=== PATIENT | male | born 1980 | race Caucasian/White ===

== ENCOUNTER 2018-10-14 22:33 | Inpatient (IN) | payer MEDICAID, OTHER, SELFPAY ==
[~2018-10-14] VITALS: Ht 185.4 cm; Wt 84.1 kg
[~2018-10-14 22:33] MED LIST: CLAR10CA3 PO; INVE234I IM; RISP2TAB32 PO; TRAZ-252 PO; no home medications
[2018-10-14 23:21] LABS: HEMATOCRIT 46.1 % (42.0-52.0); HEMOGLOBIN 15.5 g/dl (13.5-17.5); MEAN CORPUSCULAR HEMOGLOBIN 32.5 pg (27.0-33.0); MEAN CORPUSCULAR HGB CONC 33.6 g/dl (32.0-36.5); MEAN CORPUSCULAR VOLUME 96.6 fl (80.0-96.0); PLATELET COUNT, AUTOMATED 356 10^3/uL (150-450); RED BLOOD COUNT 4.77 10^6/uL (4.30-6.10); WHITE BLOOD COUNT 7.3 10^3/uL (4.0-10.0)
[2018-10-14 23:50] LABS: AMPHETAMINES LEVEL URINE NEGATIVE (NEGATIVE); BARBITURATES URINE NEGATIVE (NEGATIVE); BENZODIAZEPINES URINE NEGATIVE (NEGATIVE); CANNABINOIDS URINE POSITIVE (NEGATIVE); COCAINE METABOLITE URINE NEGATIVE (NEGATIVE); METHADONE URINE NEGATIVE (NEGATIVE); OPIATES URINE NEGATIVE (NEGATIVE); PHENCYCLIDINE URINE NEGATIVE (NEGATIVE)
[2018-10-14 23:59] LABS: ACETAMINOPHEN LEVEL < 2.0 UG/ML (10.0-30.0); ALBUMIN 4.1 GM/DL (3.2-5.2); ALT/SGPT 35 U/L (12-78); BILIRUBIN,DIRECT < 0.1 MG/DL (0.0-0.2); BILIRUBIN,TOTAL 0.2 MG/DL (0.2-1.0); BLOOD UREA NITROGEN 6 MG/DL (7-18); CALCIUM LEVEL 8.2 MG/DL (8.5-10.1); CARBON DIOXIDE LEVEL 23 MEQ/L (21-32); CHLORIDE LEVEL 107 MEQ/L (98-107); CREATININE FOR GFR 0.96 MG/DL (0.70-1.30); ETHYL ALCOHOL (ETHANOL) 0.292 % (0.000-0.010); GLOMERULAR FILTRATION RATE > 60.0 (>60); GLUCOSE, FASTING 112 MG/DL (70-100); POTASSIUM SERUM 4.3 MEQ/L (3.5-5.1); SALICYLATE LEVEL 4.9 MG/DL (5.0-30.0); SODIUM LEVEL 139 MEQ/L (136-145); THYROID STIMULATING HORMONE 0.493 uIU/ML (0.358-3.740); TOTAL PROTEIN 7.9 GM/DL (6.4-8.2)
[2018-10-15] MEDS ORDERED: METAL LOCK LOOP XX ONE (02:54)
[2018-10-15] MEDS ORDERED: MOM 30ML SUSPENSION UDC PO PRN (10:15)
[2018-10-15] MEDS ORDERED: MAALOX 30 ML SUSP *UDC PO PRN (10:15)
[2018-10-15] MEDS ORDERED: ACETAMINOPHEN TAB 650MG DOSE (2X325MG) PO PRN (10:15)
[2018-10-15 11:31] VITALS: BP 141/87
[2018-10-15] MEDS: NICOTINE 21MG/24HR 1 EA TRANSDERMAL TD SCH (13:55)
[2018-10-15] MEDS: MULTIVITAMINS/MINERALS THERAP 1 TAB PO SCH (13:56)
[2018-10-15] MEDS: THIAMINE 100 MG TAB PO SCH (13:56)
[2018-10-15] MEDS: FOLIC ACID 1 MG TAB PO SCH (13:56)
[2018-10-15] MEDS: POLYSPORIN TOPICAL OINTMENT 15GM TOP SCH ×3 (15:44→21:27)
--- NOTE | 2018-10-15 16:17 | HPEPDOC ---
General Date of Admission October 15, 2018 at 10:05 Date of Service: October 15, 2018 Chief Complaint The patient is a 38-year-old male admitted who presented to the emergency room after hes brought in by police because his parents thought he was going to harm himself History of Present Illness Patient is a 38-year-old female with no significant past medical history who presented to the emergency room brought in by police because parents have reported that he may harm himself. Patient reports that he has no suicidal intention and he feels okay, has no thoughts of depression. This is currently being managed by the psychiatrist. Hospitalist service was consultation for further medical management. On review of systems patient denies any headache, chest pain, shortness of breath, palpi tations, nausea, vomiting, abdominal pain, constipation, diarrhea, urinary discomfort or fevers / chills in the last few days. Patient does report a chronic cough that he attributes to smoking. Patient does report left wrist pain that he attributes to handcuffs, and left shoulder abrasion that he notes occurred during his arrest / transfer to [facility]. Patient does not report any significant pain but does report that he would like to have ice applied. Home Medications No Active Prescriptions or Reported Meds Allergies Coded Allergies: No Known Allergies (Unverified , 02/21/14) Past Medical History Medical History No significant past medical history Surgical History Appendectomy at the age of 12 Family History - Mother and father with no reported medical history - No history of malignancies Social History - Patient reports that he is a smoker of cigarettes for 25 years at less than 1 per day - He reports that he drinks alcohol; reported at couple of beers a day - Patient does report occasional. Drug use of marijuana - Denies recent travel or sick contacts - Lives alone - Occupation; construction work Review of Systems Other systems 10 point review of systems complete, all negative otherwise stated in HPI Vital Signs - Vitals: BP 147/87, HR 73, RR 18, Sat 96%RA, Temp 98.4F - General: Lying in bed, No acute distress, Speaking in full sentences, AAOx3 - HEENT: NC, AT, PERRLA, EOMI - CVS: RRR, +S1S2, - Murmurs / rubs / gallops - Lungs: Fair air entry bilaterally, Clear to auscultation, No wheezing / rales / rhonchi - Abdomen: Soft, Non-distended, Non-tender - Extremities: No lower extremity edema, No calf tenderness, mild left wrist swelling, no significant tenderness, has full range of motion of left wrist - Neuro: No focal motor or sensory deficit - Skin: Area of abrasion over left shoulder Laboratory Data Labs 24H Laboratory Tests 2 10/14/18 23:09: Nucleated Red Blood Cells % (auto) 0.0, Anion Gap 9, Glomerular Filtration Rate > 60.0, Calcium Level 8.2L, Aspartate Amino Transf (AST/SGOT) 26, Alanine Aminotransferase (ALT/SGPT) 35, Alkaline Phosphatase 101, Total Bilirubin 0.2, Direct Bilirubin < 0.1, Total Protein 7.9, Albumin 4.1, Albumin/Globulin Ratio 1.08, Thyroid Stimulating Hormone (TSH) 0.493, Salicylates Level 4.9L, Urine Amphetamines Screen NEGATIVE, Urine Benzodiazepines Screen NEGATIVE, Urine Opiates Screen NEGATIVE, Urine Methadone Screen NEGATIVE, Acetaminophen Level < 2.0L, Urine Barbiturates Screen NEGATIVE, Urine Phencyclidine Screen NEGATIVE, Urine Cocaine Metabolite Screen NEGATIVE, Urine Cannabinoids Screen POSITIVEH, Ethyl Alcohol Level 0.292H CBC/BMP Laboratory Tests 10/14/18 23:09 Red Blood Count 4.77, Mean Corpuscular Volume 96.6 H, Mean Corpuscular Hemoglobin 32.5, Mean Corpuscular Hemoglobin Concent 33.6, Red Cell Distribution Width 12.6 Plan / VTE VTE Prophylaxis Ordered?: Yes Plan Plan Possible thoughts of harming self / Suspicion of depressed mood - Patient reports that he has no suicidal intention; and feels okay - Currently is being managed by psychiatry Left wrist pain - Will get x-ray of wrist to evaluate - Continue with ice pack when necessary pain Left shoulder abrasion - No signs of infection - Area was cleaned with alcohol swabs - Will apply Polysporin ointment twice daily DVT prophylaxis - c/w early ambulation Baker Helper was present during the duration of this history and physical Please re-consult as needed ZAYRA GUADARRAMA MD October 15, 2018 16:17
[2018-10-15 18:16] VITALS: BP 119/57
[2018-10-15 19:50] VITALS: BP 132/83
[2018-10-15] MEDS ORDERED: LORazepam 2 MG TAB PO PRN (21:45)
[2018-10-15] MEDS: hydrOXYzine 25 MG TAB PO SCH (22:56)
[2018-10-16 07:06] VITALS: BP 127/65
--- NOTE | 2018-10-16 08:33 | MHHPEPDOC ---
General Date Of Admission: October 16, 2018 Legal Status: 9.39 Chief Complaint No complaints. My family misunderstood History of Present Illness HISTORY OF THE PRESENT ILLNESS: Patient is a 38 -year-old , male, who . Note * Patient arrived last night by police, after family called for help. He had reportedly been posting suicidal material on social media, as well as phoning his mother & expressing SI. Patient was intoxicated at the time, however is now sober. Patient admits that he has been posting things that have been rather bizarre, in response to some incident in [place]. His explanation of this was difficult t o follow & he eventually changed topics. He says that he had posted "some things", although denies that they were suicidal in content. He also denies threats made via phone to his mother. During interview patient was vague & evasive. Some of the info which he provided was quite inconsistent with what is known to be true, suggesting that he was unreliable. Patient's sister (Carline Jackson ([phone]) was contacted for corroboration, and reported the following: Patient has a long h/o untreated addiction (cannabis) & mental health issues. He recently has been decompensating to the point where he began threatening suicide yesterday. He began posting his SI on social media & then later phoned his mother with more of the same. Mother placed call on speakerphone, where sister heard his repeated statements about his desire to & suicidal ideas. After hearing the telephone call on speakerphone, sister told him that she was on her way to help him. Upon her arrival, patient's home was found to be without lights on. The doors were also locked. Sister (who is a [employer] [place], but was off duty) then contacted local police for assistance, fearing that he had indeed killed himself. Patient eventually opened the door, although he resisted being taken into custody. Sister checked to see if there was any evidence of other drugs (aside from cannabis), however only cannabis & many empty beer bottles were observed. She noted that this was a surprise, as she had known patient to be "a drinker". She expressed hope that [facility], citing his suicidal threats & family fearing for his safety.. Patient lives in [place], and has a girlfriend. Easily 1 and has 2 children, 18 and 17. They live in [place] with his ex-. He has been employed in construction, vane, lawn work and fixing automobiles. He denies any legal history. He states he was educated at [employer] for a couple of years. His family history is negative. His medical history is negative. His neurological history is neg ative. He is on no medications. He states he has had an appendectomy.. He denies alcohol use and states he uses pot maybe once a week. Addiction to what was reported by his sister who is a real estate administrative assistant. Please read above his. He states his mother and father were worried about him, but they misunderstood his Facebook posts which were about nuclear warheads and that that occurred in [place] that was recently on the news. He denies. He denies hallucinations and delusions Psychiatric Review of Systems Depression (2 or more weeks): difficulty concentrating, suicidal thoughts Psychosis: denies PTSD: denies Anxiety: denies Past Psychiatric History Previous Psychiatric Diagnosis: Negative. Previous Psychiatric Admissions:. Negative. Suicide Attempts: Family states he has been making statements. Psychiatric Follow-up:. Negative Psychiatric medications: Negative. Past Medical History Head Injury: No Seizures: No Hospitalizations: No Surgeries: No Family Medical/Psychiatric HX Psychiatric Disorders: No Addiction: No Suicide Attemps/Completions: No Addiction History alcohol Social History Childhood: . Abuse/Trauma:. Current Living Situation: At home with girlfriend. Education: Some years at [employer]. Employment: Numerous jobs. Social Support: Girlfriend and family. Legal:. Negative. Marital: . Mental Status Examination General Appearance: unkempt Build: average Demeanor: withdrawn, guarded Eye Contact: poor Activity: average Behavior: cooperative Speech: clear Affect: constricted Thought Process: circumstantial, slow Thought Content (Delusions): none reported Thought Content (Other): guarded, unable to elaborate Thought Content (Aggressive): none reported Perception (Hallucinations): none reported Perception (Other): none reported Cognition (Impairment of): ability to abstract Cognition(Intelligence Est.): average Oriented: Oriented times three Insight: poor Judgment: Poor Psychosis: Abstract Thinking Diagnoses Rule out depression with psychotic features and polysubstance abuse A-FIB/CHADSVASC A-FIB History Current/History of A-Fib/PAF?: No Initial Treatment Plan 1. Patient was admitted on a [9.39] status. 2. Complete history was obtained. 3. With patients permission, family will be contacted and database will be expanded. 4. Patients medication regimen will be reviewed and changed accordingly. 5. Patient will be provided with protected environment. 6. Patient will be treated with individual, group, and milieu therapies. 7. Patient will receive supportive psych-education. 8. Discharge planning will commence immediately. 9. Outpatient follow-up treatment will be strongly recommended. 10. The initial treatment plan will focus initially on: * Depression. * Risk for suicide. * Substance abuse. ESTIMATED LENGTH OF STAY: - DAYS. TIME SPENT COUNSELING AND COORDINATING INITIAL CARE: minutes. Vital Signs Vital Signs Date Time Temp Pulse Resp B/P (MAP) Pulse Ox O2 Delivery O2 Flow Rate FiO2 10/16/18 07:06 98.0 55 14 127/65 (85) 10/15/18 11:31 95 10/15/18 10:44 Room Air Medications No Active Prescriptions or Reported Meds Allergies Coded Allergies: No Known Allergies (Unverified , 02/21/14) MEY BAPTISTE MD October 16, 2018 08:33
[2018-10-16] MEDS: MULTIVITAMINS/MINERALS THERAP 1 TAB PO SCH (10:02)
[2018-10-16] MEDS: THIAMINE 100 MG TAB PO SCH (10:02)
[2018-10-16] MEDS: FOLIC ACID 1 MG TAB PO SCH (10:02)
[2018-10-16] MEDS: hydrOXYzine 25 MG TAB PO SCH ×3 (10:02→20:52)
[2018-10-16] MEDS: NICOTINE 21MG/24HR 1 EA TRANSDERMAL TD SCH (10:02)
[2018-10-16] MEDS: POLYSPORIN TOPICAL OINTMENT 15GM TOP SCH ×2 (10:03→20:53)
[2018-10-16 18:15] VITALS: BP 126/69
[2018-10-17 06:50] VITALS: BP 111/61
--- NOTE | 2018-10-17 06:55 | IPN ---
DATE OF SERVICE: 10/16/2018 38-year-old male on the inpatient mental health unit. He had been complaining of left wrist pain that he had attributed to hand cuffs and a left shoulder abrasion. He has had ice applied to it. He refused and declined any x-ray . HOME MEDICATIONS: None. ALLERGIES: No known allergies. PAST MEDICAL HISTORY: Negative. FAMILY HISTORY: See history and physical. SOCIAL HISTORY: See history and physical. VITAL SIGNS: Blood pressure 127/65, pulse 56, respirations 16, temperature 98. The patient is alert and oriented times three. Pupils are equal and reactive to light. EOMs are intact. Pharynx is pink and moist. Tongue is midline. Neck is supple without lymphadenopathy. Chest is clear to auscultation. Heart regular. Abdomen benign. Bowel sounds are positive. and rectal not done. Extremities no cyanosis, clubbing, or edema. Left wrist shows no swelling and full range of motion. Radial pulse palpable. Hand grasps are equal. Left shoulder abrasion, no open areas or signs of infection. IMPRESSION: Left wrist improved with ice. The patient again declined x-ray and has full range of motion. Left shoulder abrasion. No signs of infection. Continue Polysporin ointment twice a day.
[2018-10-17] MEDS: THIAMINE 100 MG TAB PO SCH (09:10)
[2018-10-17] MEDS: hydrOXYzine 25 MG TAB PO SCH ×3 (09:10→21:43)
[2018-10-17] MEDS: MULTIVITAMINS/MINERALS THERAP 1 TAB PO SCH (09:10)
[2018-10-17] MEDS: POLYSPORIN TOPICAL OINTMENT 15GM TOP SCH ×2 (09:10→21:44)
[2018-10-17] MEDS: NICOTINE 21MG/24HR 1 EA TRANSDERMAL TD SCH (09:10)
[2018-10-17] MEDS: FOLIC ACID 1 MG TAB PO SCH (09:10)
--- NOTE | 2018-10-17 10:18 | MHIPNPDOC ---
[facility] Progress Note Progress Note DATE OF SERVICE: 10/17/18 HISTORY: 38-year-old male posting "bizarre posts" found by sister living in the dark and with beer cans. Patient continues to deny symptoms. VITAL SIGNS: See below. NEW TEST RESULTS: None. CURRENT MEDICATIONS: See below. MENTAL STATUS EXAMINATION: Patient is a 38-year old male, who is. Presenting history, which contradicts observations by family. Speech: Is slow. Language skills are intact. Thought processes including: Denial of symptoms. Thought content: Intact. Abstract reasoning, and computation:. Minimal. Description of associations:. No loose association. Description of abnormal or psychotic thoughts: No apparent psychotic thought by patient's description. Judgment:, Poor. Insight: None. Orientation: Intact 3. Recent and remote memory:. Apparently no disturbance. Attention span and concentration: Intact. Language:. No disturbance. Fund of knowledge:. The. Mood: Good. Affect: Neutral. DIAGNOSES: 1., Rule out depression. . ASSESSMENT: Further information needed from family since patient is doing denial of all of the reported symptoms MANAGEMENT PLAN:, Family contact and discharge planning necessary. TIME SPENT: 30 minutes. Vital Signs Vital Signs Date Time Temp Pulse Resp B/P (MAP) Pulse Ox O2 Delivery O2 Flow Rate FiO2 10/17/18 06:50 97.7 52 12 111/61 (78) 10/15/18 11:31 95 10/15/18 10:44 Room Air Current Medications Current Medications Acetaminophen (Tylenol Tab) 650 mg Q6HP PRN PO HEADACHE or DISCOMFORT; Start 10/15/18 at 10:15 Al Hydrox/Mg Hydrox/Simethicone (Mylanta) 30 ml Q4HP PRN PO HEARTBURN/INDIGESTION; Start 10/15/18 at 10:15 Bacitracin/ Polymyxin B Sulfate (Polysporin Top Oint) BID TOP Last administered on 10/17/18at 09:10; Start 10/15/18 at 09:00 Folic Acid (Folic Acid) 1 mg DAILY PO Last administered on 10/17/18at 09:10; Start 10/15/18 at 09:00 Home Med (Med Rec Complete!) ASDIRECTED XX ; Start 10/15/18 at 09:45; Stop 10/15/18 at 09:45; Status DC Hydroxyzine HCl (Atarax) 25 mg TID PO Last administered on 10/17/18 09:10; Start 10/15/18 at 21:00 Lorazepam (Ativan) 2 mg ASDIRECTED PRN PO SEE PROTOCOL; Start 10/15/18 at 21:45 Magnesium Hydroxide (Milk Of Magnesia) 30 ml DAILYPRN PRN PO CONSTIPATION; Start 10/15/18 at 10:15 Multivitamins (Theragram-M) 1 tab DAILY PO Last administered on 10/17/18at 09:10; Start 10/15/18 at 09:00 Nicotine (Nicoderm Cq 21mg) 1 patch DAILY TD Last administered on 10/17/18 09:10; Start 10/15/18 at 09:00 Thiamine HCl (Thiamine HCl) 100 mg DAILY PO Last administered on 10/17/18 09:10; Start 10/15/18 at 09:00 Trazodone HCl (Desyrel) 50 mg QHSP PRN PO INSOMNIA; Start 10/15/18 at 10:15 Allergies Coded Allergies: No Known Allergies (Unverified , 02/21/14) MEY BAPTISTE MD October 17, 2018 10:18
[2018-10-17 19:25] VITALS: BP 128/77
[2018-10-17] MEDS: traZODone 50 MG TAB PO PRN (21:43)
[2018-10-18 07:16] VITALS: BP 113/56
[2018-10-18] MEDS: SERTRALINE HCL 50 MG TAB PO SCH (09:00)
[2018-10-18] MEDS: PALIPERIDONE 3 MG ER TAB (INVEGA) PO SCH (09:00)
[2018-10-18] MEDS: POLYSPORIN TOPICAL OINTMENT 15GM TOP SCH ×2 (09:26→21:39)
[2018-10-18] MEDS: NICOTINE 21MG/24HR 1 EA TRANSDERMAL TD SCH (09:27)
[2018-10-18] MEDS: MULTIVITAMINS/MINERALS THERAP 1 TAB PO SCH (09:27)
[2018-10-18] MEDS: FOLIC ACID 1 MG TAB PO SCH (09:27)
[2018-10-18] MEDS: hydrOXYzine 25 MG TAB PO SCH ×3 (09:27→21:39)
[2018-10-18] MEDS: THIAMINE 100 MG TAB PO SCH (09:27)
[2018-10-18 10:12] VITALS: BP 141/78
--- NOTE | 2018-10-18 12:31 | MHIPNPDOC ---
[facility] Progress Note Progress Note DATE OF SERVICE: 10/18/18 HISTORY: 38-year-old male was brought by family due to sending suicidal notes and speaking in a depressed manner to his family. A went to his house and he was brought to the hospital. So far, he has denied any of the symptoms and says he does not remember the incidents. 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 His initial presentation here was not showing signs of gross psychotic features, but further observation revealed poor eye contact, thought stopping, thought delay and claims of not remembering what occurred. For this reason he has been begun on Invega oral medication VITAL SIGNS: See below. NEW TEST RESULTS: None. CURRENT MEDICATIONS: See below. MENTAL STATUS EXAMINATION: Patient is a 38-year old male, who is demonstrating poor eye contact and poverty of speech, denying all symptoms as well as the history, which brought him here. He has a history of previous admission with treatment for psychosis. Speech: Is slow. Language skills are, intact. Thought processes including: Some thought blocking. Thought content: Denial. Abstract reasoning, and computation: Poor. Abstraction. Description of associations: Loose associations. Description of abnormal or psychotic thoughts: Does not describe psychotic thoughts. Judgment:, Poor. Insight:, Limited. Orientation: Intact 3. Recent and remote memory: Does not have recent memory. Attention span and concentration: Poor. Language:, As above. Fund of knowledge:, Complete. Mood: Euthymic. Affect:, Flat. DIAGNOSES: 1. Undifferentiated schizophrenia. 2., Depression. 3., Polysubstance abuse. ASSESSMENT: Begin antipsychotic treatment MANAGEMENT PLAN:. Begin antipsychotic treatment and continue to evaluate. TIME SPENT: 30 minutes. Vital Signs Vital Signs Date Time Temp Pulse Resp B/P (MAP) Pulse Ox O2 Delivery O2 Flow Rate FiO2 10/18/18 10:12 67 141/78 10/18/18 07:16 98.6 12 10/15/18 11:31 95 10/15/18 10:44 Room Air Current Medications Current Medications Acetaminophen (Tylenol Tab) 650 mg Q6HP PRN PO HEADACHE or DISCOMFORT; Start 10/15/18 at 10:15 Al Hydrox/Mg Hydrox/Simethicone (Mylanta) 30 ml Q4HP PRN PO HEARTBURN/INDIGESTION; Start 10/15/18 at 10:15 Bacitracin/ Polymyxin B Sulfate (Polysporin Top Oint) BID TOP Last administered on 10/18/18 09:26; Start 10/15/18 at 09:00 Folic Acid (Folic Acid) 1 mg DAILY PO Last administered on 10/18/18 09:27; Start 10/15/18 at 09:00 Home Med (Med Rec Complete!) ASDIRECTED XX ; Start 10/15/18 at 09:45; Stop at 09:45; Status DC Hydroxyzine HCl (Atarax) 25 mg TID PO Last administered on 10/18/18 09:27; Start 10/15/18 at 21:00 Lorazepam (Ativan) 2 mg ASDIRECTED PRN PO SEE PROTOCOL; Start 10/15/18 at 21:45 Magnesium Hydroxide (Milk Of Magnesia) 30 ml DAILYPRN PRN PO CONSTIPATION; Start 10/15/18 at 10:15 Multivitamins (Theragram-M) 1 tab DAILY PO Last administered on 10/18/18 09:27; Start 10/15/18 at 09:00 Nicotine (Nicoderm Cq 21mg) 1 patch DAILY TD Last administered on 10/18/18 09:27; Start 10/15/18 at 09:00 Thiamine HCl (Thiamine HCl) 100 mg DAILY PO Last administered on 10/18/18 09:27; Start 10/15/18 at 09:00 Trazodone HCl (Desyrel) 50 mg QHSP PRN PO INSOMNIA Last administered on 10/17/18at 21:43; Start 10/15/18 at 10:15 Allergies Coded Allergies: No Known Allergies (Unverified , 02/21/14) MEY BAPTISTE MD October 18, 2018 12:31
[2018-10-18 19:04] VITALS: BP 137/64
[2018-10-19 06:52] VITALS: BP 126/73
[2018-10-19] MEDS: NICOTINE 21MG/24HR 1 EA TRANSDERMAL TD SCH (08:13)
[2018-10-19] MEDS: hydrOXYzine 25 MG TAB PO SCH ×3 (08:13→21:44)
[2018-10-19] MEDS: FOLIC ACID 1 MG TAB PO SCH (08:13)
[2018-10-19] MEDS: MULTIVITAMINS/MINERALS THERAP 1 TAB PO SCH (08:13)
[2018-10-19] MEDS: THIAMINE 100 MG TAB PO SCH (08:13)
[2018-10-19] MEDS: POLYSPORIN TOPICAL OINTMENT 15GM TOP SCH ×2 (08:14→21:44)
[2018-10-19] MEDS: PALIPERIDONE 3 MG ER TAB (INVEGA) PO SCH (09:00)
[2018-10-19] MEDS: SERTRALINE HCL 50 MG TAB PO SCH (09:00)
--- NOTE | 2018-10-19 11:03 | MHIPNPDOC ---
[facility] Progress Note Progress Note DATE OF SERVICE: 10/19/18 HISTORY: 38-year-old male was brought by family due to sending suicidal notes and speaking in a depressed manner to his family. He went to his house and he wa s brought to the hospital. So far, he has denied any of the symptoms and says he does not remember the incidents. 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 His initial presentation here was not showing signs of gross psychotic features, but further observation revealed poor eye contact, thought stopping, thought delay and claims of not remembering what occurred. For this reason he has been begun on Invega oral medication VITAL SIGNS: See below. NEW TEST RESULTS: None. CURRENT MEDICATIONS: See below. MENTAL STATUS EXAMINATION: Patient is a 38-year old male, who is demonstrating poor eye contact and poverty of speech, denying all symptoms as well as the history, which brought him here. He has a history of previous admission with treatment for psychosis. Refusing invega and zoloft due to paranoia regarding how they will make him feel and states "I won't like it." Speech: Is slow. Language skills are, intact. Thought processes including: thought blocking and paranoia Thought content: paranoia regarding regarding medications. Abstract reasoning, and computation: Poor. Abstraction. Description of associations: Loose associations. Description of abnormal or psychotic thoughts: Does not describe psychotic thoughts and appears in denial about his anxiety and paranoia Judgment:, Poor. Insight:poor Orientation: Intact 3. Recent and remote memory: Does not have recent memory. Attention span and concentration: Poor. Language:, As above. Fund of knowledge:, Complete. Mood: depressed. Affect: Flat. DIAGNOSES: 1. Undifferentiated schizophrenia. 2. Depression. 3. Polysubstance abuse. ASSESSMENT: Pt appears anxious and depressed with flat, tense affect and continued thought blocking and paranoia regarding taking any medications as thinks they will harm them. MANAGEMENT PLAN:. encourage antipsychotic treatment and continue to evaluate. Atarax 25 mg TID Ativan 2 mg DIRECTED PRN PO SEE CIWA PROTOCOL Trazodone 50 mg QHSP PRN PO INSOMNIA Invega 3 mg QAM Zoloft 50 mg DAILY TIME SPENT: 30 minutes. Vital Signs Vital Signs Date Time Temp Pulse Resp B/P (MAP) Pulse Ox O2 Delivery O2 Flow Rate FiO2 10/19/18 06:52 99.3 54 18 126/73 (90) 10/15/18 11:31 95 10/15/18 10:44 Room Air Current Medications Current Medications Acetaminophen (Tylenol Tab) 650 mg Q6HP PRN PO HEADACHE or DISCOMFORT; Start 10/15/18 at 10:15 Al Hydrox/Mg Hydrox/Simethicone (Mylanta) 30 ml Q4HP PRN PO HEARTBURN/INDIGESTION; Start 10/15/18 at 10:15 Bacitracin/ Polymyxin B Sulfate (Polysporin Top Oint) BID TOP Last administe red on 10/19/18 08:14; Start 10/15/18 at 09:00 Folic Acid (Folic Acid) 1 mg DAILY PO Last administered on 10/19/18 08:13; St art 10/15/18 at 09:00 Home Med (Med Rec Complete!) ASDIRECTED XX ; Start 10/15/18 at 09:45; Stop 10/15/18 at 09:45; Status DC Hydroxyzine HCl (Atarax) 25 mg TID PO Last administered on 10/19/18 08:13; Start 10/15/18 at 21:00 Lorazepam (Ativan) 2 mg ASDIRECTED PRN PO SEE PROTOCOL; Start 10/15/18 at 21:45; Status Cancel Magnesium Hydroxide (Milk Of Magnesia) 30 ml DAILYPRN PRN PO CONSTIPATION; Start 10/15/18 at 10:15 Multivitamins (Theragram-M) 1 tab DAILY PO Last administered on 10/19/18 08:13; Start 10/15/18 at 09:00 Nicotine (Nicoderm Cq 21mg) 1 patch DAILY TD Last administered on 10/19/18 08:13; Start 10/15/18 at 09:00 Paliperidone (Invega) 3 mg QAM PO ; Start 10/18/18 at 09:00 Sertraline HCl (Zoloft) 50 mg DAILY PO ; Start 10/18/18 at 09:00 Thiamine HCl (Thiamine HCl) 100 mg DAILY PO Last administered on 10/19/18at 08:13; Start 10/15/18 at 09:00 Trazodone HCl (Desyrel) 50 mg QHSP PRN PO INSOMNIA Last administered on 10/17/18at 21:43; Start 10/15/18 at 10:15 Allergies Coded Allergies: No Known Allergies (Unverified , 02/21/14) SUNSHINE HEATON DO October 19, 2018 11:03 am
[2018-10-19 18:02] VITALS: BP 126/67
[2018-10-19] MEDS: traZODone 50 MG TAB PO PRN (23:22)
[2018-10-20 06:29] VITALS: BP 110/54
[2018-10-20] MEDS: SERTRALINE HCL 50 MG TAB PO SCH (09:00)
[2018-10-20] MEDS: PALIPERIDONE 3 MG ER TAB (INVEGA) PO SCH (09:00)
[2018-10-20] MEDS: hydrOXYzine 25 MG TAB PO SCH ×3 (09:09→20:35)
[2018-10-20] MEDS: MULTIVITAMINS/MINERALS THERAP 1 TAB PO SCH (09:09)
[2018-10-20] MEDS: THIAMINE 100 MG TAB PO SCH (09:09)
[2018-10-20] MEDS: FOLIC ACID 1 MG TAB PO SCH (09:09)
[2018-10-20] MEDS: NICOTINE 21MG/24HR 1 EA TRANSDERMAL TD SCH (09:09)
[2018-10-20] MEDS: POLYSPORIN TOPICAL OINTMENT 15GM TOP SCH ×2 (09:10→20:36)
--- NOTE | 2018-10-20 11:11 | MHIPNPDOC ---
[facility] Progress Note Progress Note DATE OF SERVICE: 10/20/18 HISTORY: 38-year-old male was brought by family due to sending suicidal notes and speaking in a depressed manner to his family. He went to his house and he wa s brought to the hospital. So far, he has denied any of the symptoms and says he does not remember the incidents. 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 His initial presentation here was not showing signs of gross psychotic features, but further observation revealed poor eye contact, thought stopping, thought delay and claims of not remembering what occurred. For this reason he has been begun on Invega oral medication VITAL SIGNS: See below. NEW TEST RESULTS: None. CURRENT MEDICATIONS: See below. MENTAL STATUS EXAMINATION: Patient is a 38-year old male, who is demonstrating poor eye contact and poverty of speech, denying all symptoms as well as the history, which brought him here. He has a history of previous admission with treatment for psychosis. Refusing invega and zoloft due to paranoia regarding how they will make him feel and states "I won't like it." Speech: Is slow. Language skills are, intact. Thought processes including: thought blocking and paranoia Thought content: paranoia regarding regarding medications. Abstract reasoning, and computation: Poor. Abstraction. Description of associations: Loose associations. Description of abnormal or psychotic thoughts: Does not describe psychotic thoughts and appears in denial about his anxiety and paranoia Judgment:, Poor. Insight:poor Orientation: Intact 3. Recent and remote memory: Does not have recent memory. Attention span and concentration: Poor. Language:, As above. Fund of knowledge:, Complete. Mood: depressed. Affect: Flat. DIAGNOSES: 1. Undifferentiated schizophrenia. 2. Depression. 3. Polysubstance abuse. ASSESSMENT: Pt appears anxious and depressed with flat, tense affect still and continued thought blocking and paranoia regarding taking any medications as thinks they will harm them. Continues to refuse to take any meds except trazodone and atarax. States he will at least try invega today to "try it" after discussed explicit risks/benefits. MANAGEMENT PLAN:. encourage antipsychotic treatment and continue to evaluate. Atarax 25 mg TID Ativan 2 mg DIRECTED PRN PO SEE [facility] PROTOCOL Trazodone 50 mg QHSP PRN PO INSOMNIA Invega 3 mg QAM Zoloft 50 mg DAILY TIME SPENT: 30 minutes. Vital Signs Vital Signs Date Time Temp Pulse Resp B/P (MAP) Pulse Ox O2 Delivery O2 Flow Rate FiO2 10/20/18 06:29 98.2 58 16 110/54 (72) 10/15/18 11:31 95 10/15/18 10:44 Room Air Current Medications Current Medications Acetaminophen (Tylenol Tab) 650 mg Q6HP PRN PO HEADACHE or DISCOMFORT Last administered on 10/19/18 13:21; Start 10/15/18 at 10:15 Al Hydrox/Mg Hydrox/Simethicone (Mylanta) 30 ml Q4HP PRN PO HEARTBURN/INDIGESTION; Start 10/15/18 at 10:15 Bacitracin/ Polymyxin B Sulfate (Polysporin Top Oint) BID TOP Last administered on 10/20/18 09:10; Start 10/15/18 at 09:00 Folic Acid (Folic Acid) 1 mg DAILY PO Last administered on 10/20/18at 09:09; Start 10/15/18 at 09:00 Home Med (Med Rec Complete!) ASDIRECTED XX ; Start 10/15/18 at 09:45; Stop 10/15/18 at 09:45; Status DC Hydroxyzine HCl (Atarax) 25 mg TID PO Last administered on 10/20/18 09:09; Start 10/15/18 at 21:00 Lorazepam (Ativan) 2 mg ASDIRECTED PRN PO SEE PROTOCOL; Start 10/15/18 at 21:45; Status Cancel Magnesium Hydroxide (Milk Of Magnesia) 30 ml DAILYPRN PRN PO CONSTIPATION; Start 10/15/18 at 10:15 Multivitamins (Theragram-M) 1 tab DAILY PO Last administered on 10/20/18 09:09; Start 10/15/18 at 09:00 Nicotine (Nicoderm Cq 21mg) 1 patch DAILY TD Last administered on 10/20/18 09:09; Start 10/15/18 at 09:00 Paliperidone (Invega) 3 mg QAM PO ; Start 10/18/18 at 09:00 Sertraline HCl (Zoloft) 50 mg DAILY PO ; Start 10/18/18 at 09:00 Thiamine HCl (Thiamine HCl) 100 mg DAILY PO Last administered on 10/20/18at 09:09; Start 10/15/18 at 09:00 Trazodone HCl (Desyrel) 50 mg QHSP PRN PO INSOMNIA Last administered on at 23:22; Start 10/15/18 at 10:15 Allergies Coded Allergies: No Known Allergies (Unverified , 02/21/14) SUNSHINE HEATON DO October 20, 2018 09:26
[2018-10-20 18:03] VITALS: BP 140/85
[2018-10-21 02:20] VITALS: BP 155/91
[2018-10-21 06:59] VITALS: BP 118/61
[2018-10-21] MEDS: FOLIC ACID 1 MG TAB PO SCH (08:18)
[2018-10-21] MEDS: PALIPERIDONE 3 MG ER TAB (INVEGA) PO SCH (08:18)
[2018-10-21] MEDS: NICOTINE 21MG/24HR 1 EA TRANSDERMAL TD SCH (08:18)
[2018-10-21] MEDS: MULTIVITAMINS/MINERALS THERAP 1 TAB PO SCH (08:18)
[2018-10-21] MEDS: THIAMINE 100 MG TAB PO SCH (08:18)
[2018-10-21] MEDS: POLYSPORIN TOPICAL OINTMENT 15GM TOP SCH ×2 (08:18→21:13)
[2018-10-21] MEDS: SERTRALINE HCL 50 MG TAB PO SCH (08:19)
[2018-10-21] MEDS: hydrOXYzine 25 MG TAB PO SCH ×3 (08:19→21:13)
--- NOTE | 2018-10-21 10:53 | MHIPNPDOC ---
[facility] Progress Note Progress Note DATE OF SERVICE: 10/21/18 HISTORY: 38-year-old male was brought by family due to sending suicidal notes and speaking in a depressed manner to his family. He went to his house and he wa s brought to the hospital. So far, he has denied any of the symptoms and says he does not remember the incidents. 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 His initial presentation here was not showing signs of gross psychotic features, but further observation revealed poor eye contact, thought stopping, thought delay and claims of not remembering what occurred. For this reason he has been begun on Invega oral medication VITAL SIGNS: See below. NEW TEST RESULTS: None. CURRENT MEDICATIONS: See below. MENTAL STATUS EXAMINATION: Patient is a 38-year old male, who is demonstrating poor eye contact and im proved speech, denying all symptoms as well as the history, which brought him here. He has a history of previous admission with treatment for psychosis. Refusing zoloft still but did take invega this am. Speech: Is slow. Language skills are, intact. Thought processes including: thought blocking and paranoia improved today Thought content: improved paranoia regarding regarding too many medications (did take invega this am for first time). Abstract reasoning, and computation: fair. Abstraction. Description of associations: improved Loose associations. Description of abnormal or psychotic thoughts: Does not describe psychotic thoughts and appears in denial about his anxiety and paranoia Judgment:, Poor. Insight:poor Orientation: Intact 3. Recent and remote memory: Does not have recent memory. Attention span and concentration: improved Language:, As above. Fund of knowledge:, Complete. Mood: less depressed. Affect: monothymic, less anxious DIAGNOSES: 1. Undifferentiated schizophrenia. 2. Depression. 3. Polysubstance abuse. ASSESSMENT: Pt appears less anxious and depressed, more relaxed affect, less thought blocking and talking more, less paranoia. Agreeable to possibly taking zoloft today now that he's tried invega and found it beneficial for improved clear thoughts and anxiety w/o any side effects. Continues to endorse anxiety and depression though and worries about his finances and getting back to work soon to make money. Denies SI/HI MANAGEMENT PLAN:. encourage antipsychotic treatment and continue to evaluate. Atarax 25 mg TID Trazodone 50 mg QHSP PRN PO INSOMNIA Invega 3 mg QAM Zoloft 50 mg DAILY TIME SPENT: 30 minutes. Vital Signs Vital Signs Date Time Temp Pulse Resp B/P (MAP) Pulse Ox O2 Delivery O2 Flow Rate FiO2 10/21/18 06:59 98.5 50 14 118/61 (80) 10/15/18 11:31 95 10/15/18 10:44 Room Air Current Medications Current Medications Acetaminophen (Tylenol Tab) 650 mg Q6HP PRN PO HEADACHE or DISCOMFORT Last administered on 10/19/18 13:21; Start 10/15/18 at 10:15 Al Hydrox/Mg Hydrox/Simethicone (Mylanta) 30 ml Q4HP PRN PO HEARTBURN/INDIGESTION; Start 10/15/18 at 10:15 Bacitracin/ Polymyxin B Sulfate (Polysporin Top Oint) BID TOP Last administered on 10/21/18 08:18; Start 10/15/18 at 09:00 Folic Acid (Folic Acid) 1 mg DAILY PO Last administered on 10/21/18 08:18; Start 10/15/18 at 09:00 Home Med (Med Rec Complete!) ASDIRECTED XX ; Start 10/15/18 at 09:45; Stop 10/15/18 at 09:45; Status DC Hydroxyzine HCl (Atarax) 25 mg TID PO Last administered on 10/21/18 08:19; Start 10/15/18 at 21:00 Lorazepam (Ativan) 2 mg ASDIRECTED PRN PO SEE PROTOCOL; Start 10/15/18 at 21:45; Status Cancel Magnesium Hydroxide (Milk Of Magnesia) 30 ml DAILYPRN PRN PO CONSTIPATION; Start 10/15/18 at 10:15 Multivitamins (Theragram-M) 1 tab DAILY PO Last administered on 10/21/18 08:18; Start 10/15/18 at 09:00 Nicotine (Nicoderm Cq 21mg) 1 patch DAILY TD Last administered on 10/21/18 08:18; Start 10/15/18 at 09:00 Paliperidone (Invega) 3 mg QAM PO Last administered on 10/21/18 08:18; Start 10/18/18 at 09:00 Sertraline HCl (Zoloft) 50 mg DAILY PO ; Start 10/18/18 at 09:00 Thiamine HCl (Thiamine HCl) 100 mg DAILY PO Last administered on 10/21/18at 08:18; Start 10/15/18 at 09:00 Trazodone HCl (Desyrel) 50 mg QHSP PRN PO INSOMNIA Last administered on 10/19/18at 23:22; Start 10/15/18 at 10:15 Allergies Coded Allergies: No Known Allergies (Unverified , 02/21/14) SUNSHINE HEATON DO October 21, 2018 10:53
[2018-10-21 18:05] VITALS: BP 135/75
[2018-10-21] MEDS: traZODone 50 MG TAB PO PRN (21:55)
[2018-10-22 06:36] VITALS: BP 128/82
[2018-10-22] MEDS: THIAMINE 100 MG TAB PO SCH (08:56)
[2018-10-22] MEDS: FOLIC ACID 1 MG TAB PO SCH (08:56)
[2018-10-22] MEDS: POLYSPORIN TOPICAL OINTMENT 15GM TOP SCH ×2 (08:56→21:11)
[2018-10-22] MEDS: PALIPERIDONE 3 MG ER TAB (INVEGA) PO SCH (08:56)
[2018-10-22] MEDS: hydrOXYzine 25 MG TAB PO SCH ×3 (08:56→21:11)
[2018-10-22] MEDS: MULTIVITAMINS/MINERALS THERAP 1 TAB PO SCH (08:56)
[2018-10-22] MEDS: NICOTINE 21MG/24HR 1 EA TRANSDERMAL TD SCH (08:56)
[2018-10-22] MEDS: SERTRALINE HCL 50 MG TAB PO SCH ×2 (08:57→10:48)
--- NOTE | 2018-10-22 10:49 | MHIPNPDOC ---
[facility] Progress Note Progress Note DATE OF SERVICE: 10/22/18 HISTORY: 38-year-old male was brought by family due to sending suicidal notes and speaking in a depressed manner to his family. He went to his house and he wa s brought to the hospital. So far, he has denied any of the symptoms and says he does not remember the incidents. 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 His initial presentation here was not showing signs of gross psychotic features, but further observation revealed poor eye contact, thought stopping, thought delay and claims of not remembering what occurred. For this reason he has been begun on Invega oral medication. VITAL SIGNS: See below. NEW TEST RESULTS: None. CURRENT MEDICATIONS: See below. MENTAL STATUS EXAMINATION: Patient is a 38-year old male, who is demonstrating poor eye contact and i mproved speech, denying all symptoms as well as the history, which brought him here. He has a history of previous admission with treatment for psychosis. Refusing zoloft still but did take invega this am. Speech: Is slow. Language skills are, intact. Thought processes including: thought blocking and paranoia improved today Thought content: improved paranoia regarding regarding too many medications (did take invega this am for first time). Abstract reasoning, and computation: fair. Abstraction. Description of associations: improved Loose associations. Description of abnormal or psychotic thoughts: Does not describe psychotic thoughts and appears in denial about his anxiety and paranoia Judgment:, Poor. Insight:poor Orientation: Intact 3. Recent and remote memory: Does not have recent memory. Attention span and concentration: improved Language:, As above. Fund of knowledge:, Complete. Mood: less depressed. Affect: monothymic, less anxious DIAGNOSES: 1. Undifferentiated schizophrenia. 2. Depression. 3. Polysubstance abuse. ASSESSMENT: Pt continues to appear less anxious, more relaxed affect, less thought blocking and talking more, less paranoia. Agreeable to possibly taking zoloft today as didn't yesterday again. Highly encouraged to. States he's tolerating his invega well and feels it's beneficial for his thoughts (more clear) and anxiety. Continues to endorse some anxiety and depression though and worries about his finances and getting back to work soon to make money. Denies SI/HI MANAGEMENT PLAN:. encourage antipsychotic treatment and continue to evaluate. Atarax 25 mg TID Trazodone 50 mg QHSP PRN PO INSOMNIA Invega 3 mg QAM Zoloft 50 mg DAILY TIME SPENT: 30 minutes. Vital Signs Vital Signs Date Time Temp Pulse Resp B/P (MAP) Pulse Ox O2 Delivery O2 Flow Rate FiO2 10/22/18 06:36 98.2 64 16 128/82 (97) Current Medications Current Medications Acetaminophen (Tylenol Tab) 650 mg Q6HP PRN PO HEADACHE or DISCOMFORT Last administered on 10/19/18 13:21; Start 10/15/18 at 10:15 Al Hydrox/Mg Hydrox/Simethicone (Mylanta) 30 ml Q4HP PRN PO HEARTBURN/INDIGESTION; Start 10/15/18 at 10:15 Bacitracin/ Polymyxin B Sulfate (Polysporin Top Oint) BID TOP Last administered on 10/22/18 08:56; Start 10/15/18 at 09:00 Folic Acid (Folic Acid) 1 mg DAILY PO Last administered on 10/22/18 08:56; Start 10/15/18 at 09:00 Home Med (Med Rec Complete!) ASDIRECTED XX ; Start 10/15/18 at 09:45; Stop 10/15/18 at 09:45; Status DC Hydroxyzine HCl (Atarax) 25 mg TID PO Last administered on 10/22/18 08:56; Start 10/15/18 at 21:00 Lorazepam (Ativan) 2 mg ASDIRECTED PRN PO SEE PROTOCOL; Start 10/15/18 at 21:45; Status Cancel Magnesium Hydroxide (Milk Of Magnesia) 30 ml DAILYPRN PRN PO CONSTIPATION; Start 10/15/18 at 10:15 Multivitamins (Theragram-M) 1 tab DAILY PO Last administered on 10/22/18 08:56; Start 10/15/18 at 09:00 Nicotine (Nicoderm Cq 21mg) 1 patch DAILY TD Last administered on 10/22/18 08:56; Start 10/15/18 at 09:00 Paliperidone (Invega) 3 mg QAM PO Last administered on 10/22/18 08:56; Start 10/18/18 at 09:00 Sertraline HCl (Zoloft) 50 mg DAILY PO ; Start 10/18/18 at 09:00 Thiamine HCl (Thiamine HCl) 100 mg DAILY PO Last administered on 10/22/18at 08:56; Start 10/15/18 at 09:00 Trazodone HCl (Desyrel) 50 mg QHSP PRN PO INSOMNIA Last administered on 10/21/18at 21:55; Start 10/15/18 at 10:15 Allergies Coded Allergies: No Known Allergies (Unverified , 02/21/14) SUNSHINE HEATON DO October 22, 2018 09:13
[2018-10-22 17:57] VITALS: BP 139/71
[2018-10-22] MEDS: traZODone 50 MG TAB PO PRN (23:38)
[2018-10-23 06:52] VITALS: BP 137/80
[2018-10-23] MEDS: NICOTINE 21MG/24HR 1 EA TRANSDERMAL TD SCH (09:57)
[2018-10-23] MEDS: hydrOXYzine 25 MG TAB PO SCH ×3 (09:58→21:14)
[2018-10-23] MEDS: FOLIC ACID 1 MG TAB PO SCH (09:58)
[2018-10-23] MEDS: POLYSPORIN TOPICAL OINTMENT 15GM TOP SCH ×2 (09:58→21:15)
[2018-10-23] MEDS: SERTRALINE HCL 50 MG TAB PO SCH (09:58)
[2018-10-23] MEDS: PALIPERIDONE 3 MG ER TAB (INVEGA) PO SCH (09:58)
[2018-10-23] MEDS: THIAMINE 100 MG TAB PO SCH (09:58)
[2018-10-23] MEDS: MULTIVITAMINS/MINERALS THERAP 1 TAB PO SCH (09:58)
[2018-10-23 18:20] VITALS: BP 146/88
[2018-10-24 06:41] VITALS: BP 131/75
[2018-10-24] MEDS: hydrOXYzine 25 MG TAB PO SCH ×3 (08:59→21:06)
[2018-10-24] MEDS: PALIPERIDONE 3 MG ER TAB (INVEGA) PO SCH (08:59)
[2018-10-24] MEDS: MULTIVITAMINS/MINERALS THERAP 1 TAB PO SCH (08:59)
[2018-10-24] MEDS: FOLIC ACID 1 MG TAB PO SCH (08:59)
[2018-10-24] MEDS: POLYSPORIN TOPICAL OINTMENT 15GM TOP SCH ×2 (08:59→21:07)
[2018-10-24] MEDS: THIAMINE 100 MG TAB PO SCH (08:59)
[2018-10-24] MEDS: SERTRALINE HCL 50 MG TAB PO SCH (08:59)
[2018-10-24] MEDS: NICOTINE 21MG/24HR 1 EA TRANSDERMAL TD SCH (09:00)
[2018-10-24 18:06] VITALS: BP 152/83
[2018-10-24] MEDS: traZODone 50 MG TAB PO PRN (23:39)
[2018-10-25 07:00] VITALS: BP 140/63
[2018-10-25] MEDS: MULTIVITAMINS/MINERALS THERAP 1 TAB PO SCH (09:05)
[2018-10-25] MEDS: FOLIC ACID 1 MG TAB PO SCH (09:05)
[2018-10-25] MEDS: THIAMINE 100 MG TAB PO SCH (09:05)
[2018-10-25] MEDS: hydrOXYzine 25 MG TAB PO SCH ×3 (09:05→21:18)
[2018-10-25] MEDS: PALIPERIDONE 3 MG ER TAB (INVEGA) PO SCH (09:05)
[2018-10-25] MEDS: SERTRALINE HCL 50 MG TAB PO SCH (09:05)
[2018-10-25] MEDS: POLYSPORIN TOPICAL OINTMENT 15GM TOP SCH ×2 (09:05→21:00)
[2018-10-25] MEDS: NICOTINE 21MG/24HR 1 EA TRANSDERMAL TD SCH (09:06)
--- NOTE | 2018-10-25 10:58 | MHIPNPDOC ---
[facility] Progress Note Progress Note DATE OF SERVICE: 10/25/18 HISTORY: 38-year-old male was brought by family due to sending suicidal notes and speaking in a depressed manner to his family. He went to his house and he was brought to the hospital. So far, he has denied any of the symptoms and says he does not remember the incidents. 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 His initial presentation here was not showing signs of gross psychotic features, but further observation revealed poor eye contact, thought stopping, thought delay and claims of not remembering what occurred. For this reason he has been begun on Invega oral medication. VITAL SIGNS: See below. NEW TEST RESULTS: None. CURRENT MEDICATIONS: See below. MENTAL STATUS EXAMINATION: Patient is a 38-year old male, who is demonstrating poor eye contact and im proved speech, denying all symptoms as well as the history, which brought him here. He has a history of previous admission with treatment for psychosis. Refusing zoloft still but did take invega this am. Speech: Is slow. Language skills are, intact. Thought processes including: linear, logical Thought content: Denies SI/HI. Paranoia greatly improved Abstract reasoning, and computation: good. Description of associations: appropriate, no loose assoc. Description of abnormal or psychotic thoughts: denies hallucinations, delusions, paranoia Judgment: fair Insight: fair Orientation: Intact 3. Recent and remote memory: Does not have recent memory. Attention span and concentration: good Language:, As above. Fund of knowledge:, Complete. Mood: "good" Affect: euthymic, more broad range and bright DIAGNOSES: 1. Undifferentiated schizophrenia. 2. Depression. 3. Polysubstance abuse. ASSESSMENT: Pt continues to appear less anxious, more relaxed affect, less thought blocking and talking more, less paranoia. He has been compliant on all his medications thru out the weekend that he's tolerating well and finding beneficial. States he's tolerating his invega well and feels it's beneficial for his thoughts (more clear) and anxiety. Depression is improved with start of zoloft. Denies SI/HI, hallucinations, delusions. Feels safe here MANAGEMENT PLAN: d/c planning for tomorrow Atarax 25 mg TID Trazodone 50 mg QHSP PRN PO INSOMNIA Invega 3 mg QAM Zoloft 50 mg DAILY TIME SPENT: 30 minutes. Vital Signs Vital Signs Date Time Temp Pulse Resp B/P (MAP) Pulse Ox O2 Delivery O2 Flow Rate FiO2 10/25/18 07:00 99.3 73 16 140/63 (88) Current Medications Current Medications Acetaminophen (Tylenol Tab) 650 mg Q6HP PRN PO HEADACHE or DISCOMFORT Last administered on 10/19/18 13:21; Start 10/15/18 at 10:15 Al Hydrox/Mg Hydrox/Simethicone (Mylanta) 30 ml Q4HP PRN PO HEARTBURN/INDIGESTION; Start 10/15/18 at 10:15 Bacitracin/ Polymyxin B Sulfate (Polysporin Top Oint) BID TOP Last administered on 10/25/18 09:05; Start 10/15/18 at 09:00 Folic Acid (Folic Acid) 1 mg DAILY PO Last administered on 10/25/18 09:05; Start 10/15/18 at 09:00 Home Med (Med Rec Complete!) ASDIRECTED XX ; Start 10/15/18 at 09:45; Stop 10/15/18 at 09:45; Status DC Hydroxyzine HCl (Atarax) 25 mg TID PO Last administered on 10/25/18 09:05; Start 10/15/18 at 21:00 Lorazepam (Ativan) 2 mg ASDIRECTED PRN PO SEE PROTOCOL; Start 10/15/18 at 21:45; Status Cancel Magnesium Hydroxide (Milk Of Magnesia) 30 ml DAILYPRN PRN PO CONSTIPATION; Start 10/15/18 at 10:15 Multivitamins (Theragram-M) 1 tab DAILY PO Last administered on 10/25/18 09:05; Start 10/15/18 at 09:00 Nicotine (Nicoderm Cq 21mg) 1 patch DAILY TD Last administered on 10/25/18 09:06; Start 10/15/18 at 09:00 Paliperidone (Invega) 3 mg QAM PO Last administered on 10/25/18 09:05; Start 10/18/18 at 09:00 Sertraline HCl (Zoloft) 50 mg DAILY PO Last administered on 6/3/19at 09:05; Start 10/18/18 at 09:00 Thiamine HCl (Thiamine HCl) 100 mg DAILY PO Last administered on 10/25/18 09:05; Start 10/15/18 at 09:00 Trazodone HCl (Desyrel) 50 mg QHSP PRN PO INSOMNIA Last administered on 10/24/18at 23:39; Start 10/15/18 at 10:15 Allergies Coded Allergies: No Known Allergies (Unverified , 02/21/14) SUNSHINE HEATON DO Oct 25, 2018 10:58
[2018-10-25 18:27] VITALS: BP 150/82
[2018-10-26 06:37] VITALS: BP 143/80
[2018-10-26 06:38] VITALS: BP 143/80
[2018-10-26] MEDS: NICOTINE 21MG/24HR 1 EA TRANSDERMAL TD SCH (08:29)
[2018-10-26] MEDS: POLYSPORIN TOPICAL OINTMENT 15GM TOP SCH (08:30)
[2018-10-26] MEDS: PALIPERIDONE 3 MG ER TAB (INVEGA) PO SCH (08:30)
[2018-10-26] MEDS: FOLIC ACID 1 MG TAB PO SCH (08:30)
[2018-10-26] MEDS: hydrOXYzine 25 MG TAB PO SCH (08:30)
[2018-10-26] MEDS: SERTRALINE HCL 50 MG TAB PO SCH (08:30)
[2018-10-26] MEDS: MULTIVITAMINS/MINERALS THERAP 1 TAB PO SCH (08:30)
[2018-10-26] MEDS: THIAMINE 100 MG TAB PO SCH (08:30)
[2018-10-26] MEDS ORDERED: PALI1TAB2 PO (08:33)
[2018-10-26] MEDS ORDERED: SERT-155 PO (08:33)
[2018-10-26] MEDS ORDERED: HYDR-3363 PO (08:33)
[2018-10-26] MEDS ORDERED: TRAZ1TAB10 PO (08:33)
--- NOTE | 2018-10-26 08:33 | MHDSPDOC ---
[facility] Discharge Summary Discharge Summary DATE OF ADMISSION: October 15, 2018 at 10:05 DATE OF DISCHARGE: October 26, 2018 DISCHARGE DIAGNOSES: 1. Undifferentiated schizophrenia. 2. Depression unspecified 3. alcohol/cannabis use d/o REASON FOR ADMISSION: 38-year-old male was brought by family due to sending suicidal notes and speaking in a depressed manner to his family. He went to his house and he was brought to the hospital. So far, he has denied any of the symptoms and says he does not remember the incidents. 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 His initial presentation here was not showing signs of gross psychotic features, but further observation revealed poor eye contact, thought stopping, thought delay and claims of not remembering what occurred. For this reason he has been begun on Invega oral medication. CONSULTANTS INVOLVED: none TREATMENT AND PROGRESS ON THE UNIT : Pt was admitted to [facility], seen for psychiatric assessment and started on invega 3mg daily for psychosis and zoloft 50mg daily for depression. He was provided Atarax 25 mg TID prn anxiety and trazodone 50mg qhs prn insomnia. Pt found his medications beneficial and tolerated them well. He attended groups daily during his stay. His symptoms improved with treatment. On day of discharge he denied depression, anxiety, insomnia, SI/HI, hallucinations, delusions. He was discharged home with follow- up at [facility]. He felt safe for discharge. DISCHARGE ASSESSMENT: Pt seen and states that his mood is good and denies any psychotic symptoms. He does not appear psychotic and is not paranoid. He states he's looking forward to going home today and returning to work soon.. States he slept well last night. Feels he is tolerating his medications and they're beneficial. He is attending groups and finding them helpful. He denies depression, anxiety, insomnia, SI/HI, hallucinations, delusions. Pt feels safe to be discharged home. MENTAL STATUS EXAMINATION ON DISCHARGE: Patient is a 38-year old male, psychiatrically stable currently Speech: Is reg rate, rhythm, volume Language skills are, intact. Thought processes including: linear, logical Thought content: Denies SI/HI. future oriented to return to work soon. Abstract reasoning, and computation: good. Description of associations: appropriate, no loose assoc. Description of abnormal or psychotic thoughts: denies hallucinations, delusions, paranoia Judgment: good Insight: good Orientation: Intact 3. Recent and remote memory: intact Attention span and concentration: good Language:, As above. Fund of knowledge: average Mood: "good" Affect: euthymic, more broad range and bright MEDICATIONS ON DISCHARGE: Atarax 25 mg TID prn anxiety Trazodone 50 mg QHSP PRN PO INSOMNIA Invega 3 mg QAM Zoloft 50 mg DAILY PLAN/FOLLOWUP ARRANGEMENTS: D/c home with follow-up at [facility]. The amount of time spent in the coordination of care for this patient was approximately 30 minutes. 38-year-old male was brought by family due to sending suicidal notes and speaking in a depressed manner to his family. He went to his house and he was brought to the hospital. So far, he has denied any of the symptoms and says he does not remember the incidents. 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 His initial presentation here was not showing signs of gross psychotic features, but further observation revealed poor eye contact, thought stopping, thought delay and claims of not remembering what occurred. For this reason he has been begun on Invega oral medication. VITAL SIGNS: See below. NEW TEST RESULTS: None. CURRENT MEDICATIONS: See below. MENTAL STATUS EXAMINATION: Patient is a 38-year old male, who is demonstrating poor eye contact and improved speech, denying all symptoms as well as the history, which brought him here. He has a history of previous admission with treatment for psychosis. Refusing zoloft still but did take invega this am. Speech: Is slow. Language skills are, intact. Thought processes including: linear, logical Thought content: Denies SI/HI. Paranoia greatly improved Abstract reasoning, and computation: good. Description of associations: appropriate, no loose assoc. Description of abnormal or psychotic thoughts: denies hallucinations, delusions, paranoia Judgment: fair Insight: fair Orientation: Intact 3. Recent and remote memory: Does not have recent memory. Attention span and concentration: good Language:, As above. Fund of knowledge:, Complete. Mood: "good" Affect: euthymic, more broad range and bright DIAGNOSES: 1. Undifferentiated schizophrenia. 2. Depression. 3. Polysubstance abuse. ASSESSMENT: Pt continues to appear less anxious, more relaxed affect, less thought blocking and talking more, less paranoia. He has been compliant on all his medications thru out the weekend that he's tolerating well and finding beneficial. States he's tolerating his invega well and feels it's beneficial for his thoughts (more clear) and anxiety. Depression is improved with start of zoloft. Denies SI/HI, hallucinations, delusions. Feels safe here MANAGEMENT PLAN: d/c planning for tomorrow Atarax 25 mg TID Trazodone 50 mg QHSP PRN PO INSOMNIA Invega 3 mg QAM Zoloft 50 mg DAILY TIME SPENT: 30 minutes. Vital Signs/I&Os Vital Signs Date Time Temp Pulse Resp B/P (MAP) Pulse Ox O2 Delivery O2 Flow Rate FiO2 10/26/18 06:38 99.0 80 20 143/80 (101) Medications No Active Prescriptions or Reported Meds Allergies Coded Allergies: No Known Allergies (Unverified , 02/21/14) SUNSHINE HEATON DO Oct 26, 2018 08:33
== END 2018-10-26 09:45 | disposition home or self-care (01) | DRG 750 ==
LOC: M ED 22:33 → M ED INP 10-15 10:05 → M PSY 10-15 11:22
PROVIDERS: ADMIT Psychiatry & Neurology Child & Adolescent Psychiatry; ATTEND Psychiatry & Neurology Psychiatry
DX: F20.3 Undifferentiated schizophrenia (principal); F32.9 Major depressive disorder, single episode, unspecified; F12.10 Cannabis abuse, uncomplicated; F10.10 Alcohol abuse, uncomplicated; F17.210 Nicotine dependence, cigarettes, uncomplicated; M25.532 Pain in left wrist